=== PATIENT | female | born 1965 | race Caucasian/White ===

== ENCOUNTER → 2018-07-03 12:15 | Outpatient (CLI) | payer OTHER, BC, SELFPAY ==
[2018-07-03 12:37] LABS: Bilirubin Urine UA NEGATIVE (NEGATIVE); Color Urine UA YELLOW; Glucose Urine UA NEGATIVE (Normal); Ketones Urine UA NEGATIVE (NEGATIVE); Leukocyte Esterase Urine UA NEGATIVE (NEGATIVE); Nitrite Urine UA Negative (Negative); Occult Blood Urine UA NEGATIVE (Negative); Protein Urine UA NEGATIVE (Negative); Specific Gravity Urine UA >=1.030 (1.000-1.035); Urobilinogen Urine UA 0.2 E.U./dL (0.2)
[2018-07-03 12:40] LABS: Appearance Urine UA CLEAR
== END ==
PROVIDERS: PCP Nurse Practitioner; Visit Provider Nurse Practitioner Family
DX: R30.0 Dysuria (principal)
CPT/HCPCS: 81003

== ENCOUNTER → 2018-12-26 08:09 | Outpatient (CLI) | payer OTHER, BC, SELFPAY ==
--- NOTE | 2018-12-26 08:13 | DI.MG.S_ITS ---
BILATERAL DIGITAL SCREENING MAMMOGRAM 3D/2D WITH CAD: 12/26/2018 CLINICAL: Routine screening. Family history of breast cancer. Comparison is made to exams dated: 05/19/2015 mammogram - [facility], 11/12/2011 mammogram, and 11/12/2011 mammogram - [facility]. The tissue of both breasts is heterogeneously dense. This may lower the sensitivity of mammography. Current study was also evaluated with a Computer Aided Detection (CAD) system. No significant masses, calcifications, or other findings are seen in either breast. There has been no significant interval change. IMPRESSION: NEGATIVE There is no mammographic evidence of malignancy. A 1 year screening mammogram is recommended. This exam was interpreted at Station ID: [id number]. NOTE: For mammograms, a report in lay terms will be sent to the patient. Approximately 15% of breast malignancies will not be visualized mammographically. In the management of a palpable breast mass, a negative mammogram must not discourage biopsy of a clinically suspicious lesion. Electronically Signed By: Mian ruiz/aylin:12/28/2018 13:03:41 letter sent: Normal Exam ACR BI-RADS Category 1: Negative [id number]
[2018-12-26 10:25] LABS: Free T4, Direct Thyroxine 1.08 ng/dL (0.78-2.19)
[2018-12-26 10:39] LABS: Thyroid Stimulating Hormone 0.85 uIU/mL (0.47-4.68)
== END ==
PROVIDERS: PCP Student in an Organized Health Care Education/Training Program; Visit Provider Student in an Organized Health Care Education/Training Program
DX: Z12.31 Encounter for screening mammogram for malignant neoplasm of breast (principal); Z80.3 Family history of malignant neoplasm of breast; E04.9 Nontoxic goiter, unspecified
CPT/HCPCS: 36415; 77063; 77067; 84439; 84443

== ENCOUNTER 2019-04-30 08:47 | Day surgery (SDC) | payer OTHER, BC, SELFPAY ==
--- NOTE | 2019-04-30 | PATH_ITS ---
[facility] Accession Number: [id number] . 01 Material submitted: . PART A: colon - BIOPSY IN THE CECUM PART B: colon - POLYP AT 30 CM X2 PART C: colon - POLYP AT 25 CM PART D: colon - POLYPS AT 10 CM X2 . 02 Diagnosis: A. Cecum, Biopsy: Tubular adenoma in one of three fragments. . B. Colon, Polyp at 30 cm, Biopsies: Tubular adenomas. . C. Colon, Polyp at 25 cm, Biopsy: Tubulovillous adenoma. No evidence of malignancy or high-grade dysplasia. The excision appears complete. . D. Colon, Polyps at 10 cm x2, Biopsies: Hyperplastic polyps. [facility]/05/03/2019 . 02 Electronically signed: . Diana Cummings MD, Pathologist NPI- [id number] . 01 Gross description: . Part A: BIOPSY IN THE CECUM: Received in formalin are multiple fragment(s) of xie, soft tissue measuring 0.1 x 0.1 x 0.1 cm to 0.3 x 0.2 x 0.2 cm which is entirely submitted and submitted entirely in 1 cassette(s) Part B: POLYP AT 30 CM X2: Received in formalin are multiple fragment(s) of xie, soft tissue measuring 0.1 x 0.1 x 0.1 cm to 0.5 x 0.5 x 0.5 cm which is entirely submitted and submitted entirely in 1 cassette(s) Part C: POLYP AT 25 CM: Received in formalin is 1 fragment of xie soft tissue measuring 1.5 x 1.4 x 2.5 cm. Specimen is sectioned and submitted in its entirety in 4 cassettes. Part D: POLYPS AT 10 CM X2: Received in formalin are 2 fragment(s) of xie, soft tissue measuring 0.1 x 0.1 x 0.1 cm to 0.3 x 0.2 x 0.2 cm which is entirely submitted and submitted entirely in 1 cassette(s) /DMC /DMC . 02 Pathologist provided ICD-10: D12.0, D12.6 . 02 CPT . 015489, 686638, 817030, [id number] Performed at: 01 [facility] [address] [place] [address], [place], [place] [id number] MD Cale Guardado MD Phone: [phone] Performed at: 02 [facility] [address] [place], [place] [id number] MD Diana Cummings MD Phone: [phone]
[2019-04-30 09:00] VITALS: BP 138/87; PULSE 95; RESP 15; TEMP 36.4; O2SAT 96
[2019-04-30 09:03] VITALS: BMI 31.8
[2019-04-30] MEDS: SODIUM CHLORIDE 0.9% 1,000 ML 200 ML IV (09:12)
--- NOTE | 2019-04-30 10:54 | P.HP_ITS ---
History of Present Illness Date Patient Seen: 04/30/19 Time Patient Seen: 10:45 Chief complaint: 11798 Narrative: Patient is a woman here for screening colonoscopy. This is her 1st exam. She is 53 years of age. No family history of colon cancer. Patient History Medical History Foot pain (Chronic ~1994) Goiter (Chronic) Seborrheic dermatitis of scalp (Chronic) Thyroid nodule (Chronic) Tinnitus (Chronic) Chicken pox (Resolved ~1969) Surgical History Anesthesia (Resolved) Status post right foot surgery (Resolved ~2004) Status post tubal ligation (Resolved ~2008) Family History (Updated 02/14/15 @ 00:00 by Conversion Provider) Father Age: 82 Hypertension High cholesterol Mother Age: 81 Hypertension Grandfather No problems noted. Grandmother No problems noted. Grandfather No problems noted. Grandmother No problems noted. Sister No problems noted. Social History household members: spouse Smoking Status: Former smoker (2.5 pack year history. Quit August 2018.) Family & Social History Family History Father Age: 82 Hypertension High cholesterol Mother Age: 81 Hypertension Grandfather No problems noted. Grandmother No problems noted. Grandfather No problems noted. Grandmother No problems noted. Sister No problems noted. Social History: household members spouse Tobacco & Substance use: Smoking Status Former smoker Meds Home Medications Medication Instructions Recorded Confirmed Type levothyroxine 75 mcg tablet 75 mcg PO Q DAY #90 tab 04/27/19 04/30/19 Rx L.acidophilus-Bifido.longum 1 tab PO DAILY 04/30/19 04/30/19 History [Probiotic Pearls] Allergies Allergy/AdvReac Type Severity Reaction Status Date / Time No Known Drug Allergies Allergy Verified 04/30/19 09:00 Review of Systems Review of Systems All systems reviewed & are unremarkable except as noted in HPI and below Exam Vital Signs (past 8 hours): - 04/30/19 09:00 Temperature 97.6 F Pulse Rate 95 H Respiratory Rate 15 Blood Pressure 138/87 Pulse Oximetry 96 Oxygen Delivery Method Room Air Narrative Exam Narrative: Pleasant cooperative patient no apparent distress. Lungs are clear to auscultation. No rales or rhonchi. Heart regular rate and rhythm no murmur gallop. Abdomen is soft nontender without mass. No obvious hernias. P atient is alert and oriented x3. Assessment & Plan Assessment & Plan narrative: The patient for a screening colonoscopy. I have discussed the procedure with them. Risks of bleeding, perforation which would necessitate major operation, failure to find remove all lesions, the potential tattoo were all discussed. All questions were answered. They wished to proceed.
--- NOTE | 2019-04-30 10:54 | PM.PREOP ---
Pre-operative Note Interval Note History & Physical reviewed/Exam performed by Physician: Yes Changes to H&P: No ASA Class (for procedural sedation): I
--- NOTE | 2019-04-30 12:02 | PM.OP.ENDO ---
Operative Date/Time/Diagnoses Date of procedure: 04/30/19 Time of procedure: 12:02 Pre-op diagnosis: Screening examination. This is her 1st colonoscopy she is 53. Post-op diagnosis: same (Numerous rather large polyps) Procedure & Clinicians Study performed: Colonoscopy with cold biopsy, hot snare polypectomy and injection of ink Same procedure as scheduled: Yes Indications: Screening exam Surgeon: Wyatt Mendoza Procedure Notes SCOAP/Timeout: Performed Procedure in detail: The patient was placed in the left lateral decubitus position and underwent IV sedation directed by the surgeon consisting of fentanyl and Versed. Digital exam was remarkable for decreased sphincter tone. The scope was inserted and advanced through the rectum into the sigmoid, descending, transverse, and ascending colon. I noted a large polyp of about 35 cm going in and a smaller polyp at about 50. I decided to snare these on the way out. We continued on through the colon and I had to reposition her and applied a pressure. Ultimately we reach the cecum.. The cecum was reached identified by the ileocecal valve and the appendiceal opening. There was a small flat polyp in the cecum which I hot snared and appeared to be completely removed. The polyp that appeared to be at [address] in was actually at about [address] out. There were 2 lesions close enough to 1 another that I placed them in the same container after removing them with a hot snare. The very large polyp was at about 25 cm. It was on in incredibly long stalk. I snared this talk about mid length and attempted to remove the polyp with suction and pulling it down through the colon. I could not get it to come out the rectum however. It was just too large. A Milton net was placed on it I was able to remove it intact. I reinserted the scope and identified another polyp which I removed with cold biopsy forceps. It was not far from the large polyp which was further up in the colon. I then injected ink in 3 locations just distal to this biopsy. The scope was gradually brought out again. In the rectum there were 2 very small polyps which I removed with cold biopsy forceps. The scope ultimately was retroflexed in the rectum. The appearance was remarkable for small non ulcerated hemorrhoids. The scope was removed and the patient tolerated the procedure well, the prep was very good. Scope withdrawal time: 34 minutes Sedation minutes: 59 Findings: polyp (Multiple) Specimen(s): other (Polyps) Complications: none Recommendations: Other recommendation (Repeat colonoscopy in 6 months to ensure no regrowth of any of the polyps.)
[2019-04-30 12:05] VITALS: BP 123/82; PULSE 86; RESP 14; TEMP 36.8; O2SAT 95
[2019-04-30 12:13] VITALS: BP 127/82; PULSE 94; RESP 20; O2SAT 96
[2019-04-30 12:20] VITALS: BP 125/82; PULSE 94; RESP 15; O2SAT 93
[2019-04-30 12:48] VITALS: BP 127/75; PULSE 75; RESP 16; TEMP 37.1; O2SAT 94
--- NOTE | 2019-04-30 15:50 | SUR.PHASEII ---
1250 pt suddenly vomited 300mls of green fluid. Denied nausea after and requested to d/c. Repeatedly asked patient regarding her status and desire to D/C. Pt discharged without further incident.
== END 2019-04-30 13:00 | disposition home or self-care (01) ==
PROVIDERS: PCP Student in an Organized Health Care Education/Training Program; Visit Provider Specialist
PROC: 0DJD8ZZ Inspection of Lower Intestinal Tract, Via Natural or Artificial Opening Endoscopic (ICD-10-PCS; CPT 45378; principal; 2019-04-30 09:45)
DX: Z12.11 Encounter for screening for malignant neoplasm of colon (principal); D12.0 Benign neoplasm of cecum; D12.6 Benign neoplasm of colon, unspecified
CPT/HCPCS: 45385; 45380; 45381; 99152; 99153

== ENCOUNTER → 2020-03-17 09:20 | Outpatient (CLI) | payer OTHER, BC, SELFPAY ==
--- NOTE | 2020-03-17 09:22 | DI.RAD.S_ITS ---
PROCEDURE: XR WRIST LT MIN 3V INDICATIONS: Wrist pain and swelling TECHNIQUE: 4 views of the wrist were acquired. COMPARISON: None. FINDINGS: Bones: No fractures or dislocations. No suspicious bony lesions. First CMC and triscaphe joint degeneration Soft tissues: No suspicious soft tissue calcifications. IMPRESSION: Mild degenerative changes as above. If the patient's pain or other symptoms persist, consider further evaluation with MRI Dictated by: Chano Eckert M.D. on 03/17/2020 at 10:04 Approved by: Chano Eckert M.D. on 03/17/2020 at 10:06
== END ==
PROVIDERS: PCP Student in an Organized Health Care Education/Training Program; Referring Provider Student in an Organized Health Care Education/Training Program; Visit Provider Student in an Organized Health Care Education/Training Program
DX: M25.532 Pain in left wrist (principal); M25.432 Effusion, left wrist; M18.12 Unilateral primary osteoarthritis of first carpometacarpal joint, left hand
CPT/HCPCS: 73110

== ENCOUNTER → 2021-01-12 10:24 | Outpatient (CLI) | payer OTHER, BC, SELFPAY ==
[2021-01-12] MEDS: COVID-19 VACC #1, MRNA(MOD) 100 MCG/0.5 ML VIAL IM (10:28)
== END ==
PROVIDERS: PCP Student in an Organized Health Care Education/Training Program; Visit Provider Internal Medicine
DX: Z23 Encounter for immunization (principal)
CPT/HCPCS: 0011A; 91301

== ENCOUNTER → 2021-02-09 10:23 | Outpatient (CLI) | payer OTHER, BC, SELFPAY ==
[2021-02-09] MEDS: COVID-19 VACC #2, MRNA(MOD) 100 MCG/0.5 ML VIAL IM (10:41)
== END ==
PROVIDERS: PCP Student in an Organized Health Care Education/Training Program; Visit Provider Internal Medicine
DX: Z23 Encounter for immunization (principal)
CPT/HCPCS: 0012A; 91301

== ENCOUNTER → 2021-04-24 09:11 | Outpatient (CLI) | payer OTHER, BC, SELFPAY ==
--- NOTE | 2021-04-24 09:13 | DI.RAD.S_ITS ---
PROCEDURE: XR KNEE RT 3V INDICATIONS: Right knee pain TECHNIQUE: 3 views of the knee were acquired. COMPARISON: None. FINDINGS: Bones: No fractures or dislocations. No suspicious bony lesions. Mild tricompartmental periarticular osteophyte formation. Soft tissues: Small knee joint effusion. No suspicious soft tissue calcifications. IMPRESSION: 1. Osteoarthritis. 2. Knee joint effusion. 3. No acute fracture. No osseous lesion. If symptoms and/or clinical suspicion for pathology persist, further assessment with repeat, or advanced imaging (e.g., CT, MRI, or bone scan) may be helpful for further assessment. Dictated by: Peggy Sanchez M.D. on 04/24/2021 at 10:48 Approved by: Peggy Sanchez M.D. on 04/24/2021 at 10:49
== END ==
PROVIDERS: PCP Student in an Organized Health Care Education/Training Program; Referring Provider Student in an Organized Health Care Education/Training Program; Visit Provider Student in an Organized Health Care Education/Training Program
DX: M25.561 Pain in right knee (principal); M17.11 Unilateral primary osteoarthritis, right knee; M25.461 Effusion, right knee
CPT/HCPCS: 73562

== ENCOUNTER → 2022-07-15 15:05 | Outpatient (CLI) | payer OTHER, SELFPAY ==
[2022-07-15 15:22] LABS: Add Manual Diff / Slide Review NO; Basophils Absolute Auto 0 /uL (0-100); Basophils Percent Auto 0.5 % (0-2); Eosinophils Absolute Auto 0 /uL (0-450); Eosinophils Percent Auto 0.6 % (2-4); Hematocrit 40.5 % (36-46); Hemoglobin 13.6 g/dL (12.0-16.0); Lymphocytes Absolute Auto 1700 /uL (1100-4500); Lymphocytes Percent Auto 29.8 % (25-40); Mean Corpuscular HGB Conc 33.5 % (30-36); Mean Corpuscular Hemoglobin 29.8 PG (26-34); Mean Corpuscular Volume 89.1 fL (80-100); Monocytes Absolute Auto 400 /uL (0-900); Monocytes Percent Auto 7.7 % (3-14); Neutrophils Absolute Auto 3500 /uL (1500-7000); Neutrophils Percent Auto 61.4 % (50-75); Platelet Count 295 X10^3/uL (150-400); Red Blood Cell Count 4.54 X10^6/uL (4.0-5.2); Red Cell Distribution Width 13.3 % (11.6-14.8); White Blood Cell Count 5.8 X10^3/uL (4.5-11.0)
[2022-07-15 18:29] LABS: Hep C Virus Ab w/Reflex Quant NEGATIVE s/c (NEGATIVE)
[2022-07-15 19:24] LABS: Alanine Aminotransferase 23 IU/L (<35); Albumin 4.3 g/dL (3.5-5.0); Albumin Globulin Ratio 1.3 (1.0-2.8); Alkaline Phosphatase 67 U/L (38-126); Aspartate Aminotransferase 26 IU/L (14-36); BUN Creatinine Ratio 18.3 (6-22); Bilirubin Total 0.4 mg/dL (0.2-1.3); Blood Urea Nitrogen 13 mg/dL (7-17); Calcium 9.5 mg/dL (8.4-10.2); Carbon Dioxide 32 mmol/L (22-32); Chloride 100 mmol/L (98-107); Cholesterol 187 mg/dL (140-199); Estimated Glomerular Filt Rate > 60 mL/min (>60); Globulin 3.4 g/dL (1.7-4.1); Glucose 93 mg/dL (70-100); HDL Cholesterol 52 mg/dL (40-60); HEMOLYSIS < 15 (0-50); LDL Cholesterol Calculated 89 mg/dL (<100); Sodium 138 mmol/L (137-145); Total Protein 7.7 g/dL (6.3-8.2); Triglycerides 228 mg/dL (35-150)
[2022-07-15 20:01] LABS: Free T3, Triiodothyronine Free 5.24 pg/mL (2.77-5.27); Free T4, Direct Thyroxine 1.31 ng/dL (0.78-2.19)
[2022-07-15 20:15] LABS: Thyroid Stimulating Hormone 0.908 uIU/mL (0.47-4.68)
[2022-07-15 20:23] LABS: Vitamin B12 332 pg/mL (239-931)
== END ==
PROVIDERS: PCP Student in an Organized Health Care Education/Training Program; Referring Provider Student in an Organized Health Care Education/Training Program; Visit Provider Student in an Organized Health Care Education/Training Program
DX: Z13.220 Encounter for screening for lipoid disorders (principal); R53.83 Other fatigue; E03.9 Hypothyroidism, unspecified; E04.9 Nontoxic goiter, unspecified; E66.9 Obesity, unspecified; R63.5 Abnormal weight gain; Z11.59 Encounter for screening for other viral diseases
CPT/HCPCS: 36415; 80053; 80061; 82607; 84439; 84443; 84481; 85025; 86803

== ENCOUNTER → 2022-08-07 09:59 | Outpatient (CLI) | payer OTHER, SELFPAY ==
[2022-08-08 18:07] LABS: Fecal Immunochemical Test Positive (Negative)
== END ==
PROVIDERS: PCP Student in an Organized Health Care Education/Training Program; Referring Provider Student in an Organized Health Care Education/Training Program; Visit Provider Student in an Organized Health Care Education/Training Program
DX: Z12.11 Encounter for screening for malignant neoplasm of colon (principal)
CPT/HCPCS: 82274

== ENCOUNTER → 2023-06-04 15:00 | Outpatient (CLI) | payer OTHER, SELFPAY ==
--- NOTE | 2023-06-04 15:02 | DI.RAD.S_ITS ---
PROCEDURE: XR FOOT RT MIN 3V INDICATIONS: right foot pain TECHNIQUE: 3 views of the foot were acquired. COMPARISON: None. FINDINGS: Bones: No fractures or dislocations. No suspicious bony lesions. Calcaneal spur. Soft tissues: No tibiotalar joint effusion. Achilles tendon appears normal. IMPRESSION: No visualized acute fracture or dislocation. However, if clinical concern and/or pain persist, short interval imaging followup in 7-10 days is recommended, as occult injury cannot be definitively excluded. Dictated by: Myrna Wright M.D. on 06/04/2023 at 17:54 Approved by: Myrna Wright M.D. on 06/04/2023 at 17:55
== END ==
PROVIDERS: PCP Pediatrics; Referring Provider Internal Medicine; Visit Provider Internal Medicine
DX: M79.671 Pain in right foot (principal)
CPT/HCPCS: 73630

== ENCOUNTER → 2023-06-09 14:39 | Outpatient (CLI) | payer OTHER, SELFPAY ==
[2023-06-09 16:48] LABS: Add Manual Diff / Slide Review NO; Basophils Absolute Auto 0 /uL (0-100); Basophils Percent Auto 0.6 % (0-2); Eosinophils Absolute Auto 100 /uL (0-450); Eosinophils Percent Auto 1.3 % (2-4); Hematocrit 34.6 % (36-46); Hemoglobin 11.7 g/dL (12.0-16.0); Lymphocytes Absolute Auto 1400 /uL (1100-4500); Lymphocytes Percent Auto 31.1 % (25-40); Mean Corpuscular HGB Conc 33.7 % (30-36); Mean Corpuscular Hemoglobin 28.8 PG (26-34); Mean Corpuscular Volume 85.4 fL (80-100); Monocytes Absolute Auto 400 /uL (0-900); Monocytes Percent Auto 9.5 % (3-14); Neutrophils Absolute Auto 2500 /uL (1500-7000); Neutrophils Percent Auto 57.5 % (50-75); Platelet Count 349 X10^3/uL (150-400); Red Blood Cell Count 4.05 X10^6/uL (4.0-5.2); Red Cell Distribution Width 14.2 % (11.6-14.8); White Blood Cell Count 4.4 X10^3/uL (4.5-11.0)
[2023-06-09 17:08] LABS: D Dimer 6323 ng/ml (<500)
[2023-06-09 17:12] LABS: Alanine Aminotransferase 27 IU/L (<35); Albumin 3.7 g/dL (3.5-5.0); Albumin Globulin Ratio 1.3 (1.0-2.8); Alkaline Phosphatase 69 U/L (38-126); Aspartate Aminotransferase 23 IU/L (14-36); BUN Creatinine Ratio 32.8 (6-22); Bilirubin Total 0.2 mg/dL (0.2-1.3); Blood Urea Nitrogen 19 mg/dL (7-17); Calcium 9.3 mg/dL (8.4-10.2); Carbon Dioxide 28 mmol/L (22-32); Chloride 103 mmol/L (98-107); Estimated Glomerular Filt Rate > 60 mL/min (>60); Globulin 2.9 g/dL (1.7-4.1); Glucose 89 mg/dL (70-100); HEMOLYSIS < 15 (0-50); Potassium 4.2 mmol/L (3.4-5.1); Sodium 137 mmol/L (137-145); Total Protein 6.6 g/dL (6.3-8.2)
[2023-06-09 17:19] LABS: NT-proBNP (BNP-Adult 18+) 194 pg/mL (<125)
[2023-06-09 17:26] LABS: Free T3, Triiodothyronine Free 4.14 pg/mL (2.77-5.27); Free T4, Direct Thyroxine 1.35 ng/dL (0.78-2.19)
[2023-06-09 17:33] LABS: Erythrocyte Sedimentation Rate 43 MM/HR (0-20)
[2023-06-09 20:06] LABS: Appearance Urine UA CLEAR; Bilirubin Urine UA NEGATIVE (NEGATIVE); Color Urine UA YELLOW; Glucose Urine UA NEGATIVE (Negative); Ketones Urine UA NEGATIVE (NEGATIVE); Leukocyte Esterase Urine UA NEGATIVE (NEGATIVE); Nitrite Urine UA NEGATIVE (Negative); Occult Blood Urine UA NEGATIVE (Negative); Protein Urine UA NEGATIVE (Negative); Urobilinogen Urine UA 0.2 E.U./dL (0.2)
[2023-06-09 20:29] LABS: Amorphous Sediment Urine 1+; Bacteria Urine None Seen; Culture Indicated Urine Specimen Cultured; RBC Urine None Seen (0-5/HPF); Squamous Epithelial Cell Urine 10-30 /HPF (0-5/HPF); WBC Urine 0-1/HPF (0-5/HPF)
[2023-06-11 16:56] LABS: Anti Thyroglobulin Antibody <1.0 IU/mL (0.0-0.9); Thyroid Peroxidase Antibodies 15 IU/mL (0-34)
== END ==
PROVIDERS: PCP Pediatrics; Referring Provider Pediatrics; Visit Provider Pediatrics
DX: E03.9 Hypothyroidism, unspecified (principal); E66.9 Obesity, unspecified; M79.604 Pain in right leg; M79.605 Pain in left leg; R60.9 Edema, unspecified
CPT/HCPCS: 36415; 80053; 81001; 83880; 84439; 84481; 85025; 85379; 85651; 86376; 86800; 87086

== ENCOUNTER → 2023-06-17 12:13 | Outpatient (CLI) | payer OTHER, SELFPAY ==
--- NOTE | 2023-06-17 | DI.US.S_ITS ---
PROCEDURE: US PERIPH VENOUS LOW EXTREM BI INDICATIONS: LEG EDEMA TECHNIQUE: Real-time imaging, as well as color and pulse Doppler interrogation, were performed of the deep veins of both legs from the inguinal ligament to the popliteal fossa, with documentation of the visualized calf veins. COMPARISON: None. FINDINGS: Right: The common femoral, femoral, popliteal, and the visualized calf veins are normally compressible, and free of intraluminal thrombus. Color and pulse Doppler demonstrate normal phasic intravascular flow. There is normal augmentation response to distal compression maneuver. Right groin lymph nodes are seen that measure up to 3.1 cm. There is a right Mata's cyst seen that measures 7.2 x 2.3 x 4.9 cm. Left: The common femoral, femoral, popliteal, and the visualized calf veins are normally compressible, and free of intraluminal thrombus. Color and pulse Doppler demonstrate normal phasic intravascular flow. There is normal augmentation response to distal compression maneuver. A left Mata's cyst is seen that measures 4.7 x 1.7 x 5.8 cm. IMPRESSION: No findings of deep venous thrombosis in either lower extremity. Dictated by: Neri Mirza M.D. on 06/17/2023 at 12:24 Approved by: Neri Mirza M.D. on 06/17/2023 at 12:26
== END ==
PROVIDERS: PCP Pediatrics; Referring Provider Pediatrics; Visit Provider Pediatrics
DX: M79.89 Other specified soft tissue disorders (principal); M79.604 Pain in right leg; M79.605 Pain in left leg; R60.9 Edema, unspecified; M71.21 Synovial cyst of popliteal space [Baker], right knee; M71.22 Synovial cyst of popliteal space [Baker], left knee
CPT/HCPCS: 93970

== ENCOUNTER → 2024-06-08 14:25 | Outpatient (CLI) | payer OTHER, SELFPAY ==
[2024-06-08 15:11] LABS: Hematocrit 40.6 % (36-46); Hemoglobin 13.7 g/dL (12.0-16.0); Mean Corpuscular HGB Conc 33.8 % (30-36); Mean Corpuscular Hemoglobin 31.2 PG (26-34); Mean Corpuscular Volume 92.3 fL (80-100); Platelet Count 230 X10^3/uL (150-400); Red Cell Distribution Width 13.2 % (11.6-14.8); White Blood Cell Count 5.4 X10^3/uL (4.5-11.0)
[2024-06-08 15:24] LABS: Alanine Aminotransferase 19 IU/L (<35); Albumin 4.4 g/dL (3.5-5.0); Albumin Globulin Ratio 1.8 (1.0-2.8); Alkaline Phosphatase 60 U/L (38-126); Aspartate Aminotransferase 24 IU/L (14-36); BUN Creatinine Ratio 23.5 (6-22); Bilirubin Total 0.5 mg/dL (0.2-1.3); Blood Urea Nitrogen 16 mg/dL (7-17); C-Reactive Protein Quant < 0.5 mg/dL (<1.0); Calcium 9.7 mg/dL (8.4-10.2); Carbon Dioxide 28 mmol/L (22-32); Chloride 103 mmol/L (98-107); Cholesterol 188 mg/dL (140-199); Estimated Glomerular Filt Rate > 60 mL/min (>60); Globulin 2.5 g/dL (1.7-4.1); Glucose 96 mg/dL (80-110); HDL Cholesterol 68 mg/dL (40-60); HEMOLYSIS < 15 (0-50); LDL Cholesterol Calculated 64 mg/dL (<100); Potassium 4.1 mmol/L (3.4-5.1); Sodium 138 mmol/L (137-145); Total Protein 6.9 g/dL (6.3-8.2); Triglycerides 281 mg/dL (35-150)
[2024-06-08 15:52] LABS: TSH w/ Reflex to FT4 0.58 uIU/mL (0.47-4.68)
[2024-06-08 15:56] LABS: Erythrocyte Sedimentation Rate 10 MM/HR (0-20)
== END ==
LOC: LAB 14:26
PROVIDERS: PCP Internal Medicine; Referring Provider Internal Medicine; Visit Provider Internal Medicine
DX: E03.9 Hypothyroidism, unspecified (principal); I87.2 Venous insufficiency (chronic) (peripheral); M17.11 Unilateral primary osteoarthritis, right knee; M35.3 Polymyalgia rheumatica
CPT/HCPCS: 36415; 80053; 80061; 84443; 85027; 85651; 86140

== ENCOUNTER → 2025-01-27 13:24 | Outpatient (CLI) | payer OTHER, SELFPAY ==
--- NOTE | 2025-01-27 13:26 | DI.US.S_ITS ---
PROCEDURE: US THYROID INDICATIONS: THYROID NODULE TECHNIQUE: Real-time scanning was performed of the thyroid gland, with image documentation. COMPARISON: [facility], US, THYROID, 09/08/2017, 14:50. FINDINGS: Thyroid: Right lobe measures 9.2 x 4.2 x 2.9 cm. Left lobe measures 9.7 x 4.4 x 3.7 cm. Isthmus is 1.1 cm thick. Echotexture is heterogeneous. Nodule number: 1 Location: Right superior Size: 1.6 cm, previously 1.4 cm. Composition: Solid Echogenicity: Isoechoic Shape: wider than tall. Margins: Smooth Echogenic foci: None Total points: 3 ACR TI-RADS category: Mildly suspicious Nodule number: 2 Location: Right inferior Size: 2.7 cm, previously 2.1 cm. Composition: Solid Echogenicity: Isoechoic Shape: wider than tall. Margins: Ill-defined Echogenic foci: None Total points: 3 ACR TI-RADS category: Mildly suspicious Nodule number: 3 Location: Left inferior Size: 1.7 x 1.2 x 1.9 cm. Composition: Predominantly solid Echogenicity: Isoechoic Shape: Taller than wide Margins: Ill-defined Echogenic foci: None Total points: 6 ACR TI-RADS category: Moderately suspicious Nodule number: 4 Location: Isthmus Size: 1.5 cm. Composition: Predominantly solid Echogenicity: Isoechoic Shape: wider than tall. Margins: Ill-defined Echogenic foci: None Total points: 3 ACR TI-RADS category: Mildly suspicious IMPRESSION: 1. Thyroid nodules as described above. 2. Thyroid nodule 2 has increased in size and qualifies for fine-needle aspiration. 3. Thyroid nodule 3 is unclear if this is seen on prior exam. This nodule qualifies for fine-needle aspiration. 4. New isthmus nodule measuring 1.5 cm, 1 year follow-up is recommended. ACR TI-RADS definitions and recommendations: TI-RADS 1 (benign): 0 points. FNA not needed. TI-RADS 2 (not suspicious): 2 points. FNA not needed. TI-RADS 3: 3 points. * FNA if 2.5 cm or larger, follow up if 1.5 cm or larger (at 1, 3, and 5 years). TI-RADS 4: 4-6 points. * FNA if 1.5 cm or larger, follow up if 1 cm or larger (at 1, 2, 3, and 5 years). TI-RADS 5: 7 points or more. * FNA if 1 cm or larger, follow up if 0.5 cm or larger (every year for 5 years). Dictated by: Yuri Sanabria M.D. on 01/27/2025 at 19:39 Approved by: Yuri Sanabria M.D. on 01/27/2025 at 19:47
== END ==
PROVIDERS: PCP Family Medicine; Referring Provider Family Medicine; Visit Provider Family Medicine
DX: E04.2 Nontoxic multinodular goiter (principal)
CPT/HCPCS: 76536

== ENCOUNTER → 2025-02-21 13:07 | Outpatient (CLI) | payer OTHER, SELFPAY ==
--- NOTE | 2025-02-21 | PATH_ITS ---
Note [facility] Accession Number: [id number] TESTS RESULT FLAG UNITS REF RANGE LAB Clinician Provided Cytology Information No. of containers..01 Other (Miscellaneous) No. of containers..02 Previously Prepared Cytology Slide Source: LEFT INFERIOR THYROID NODULE #1 DIAGNOSIS: LEFT INFERIOR THYROID NODULE #1 ATYPIA OF UNDETERMINED SIGNIFICANCE. BETHESDA CATEGORY III. ATYPIA OF UNDETERMINED SIGNIFIANCE - NUCLEAR ATYPIA. MOLECULAR STUDIES REQUESTED; RESULTS WILL BE REPORTED SEPARATELY. Pathologist ICD10: R89.6 Signed out by: Pamela Barrett MD, Pathologist NPI- [id number] Performed by: Marcela Friedman, Hat Measurer ([facility]) Gross description: 30 CC, COLORLESS, CLEAR RECIEVED: IN CYTOLYT WITH 6 ALCOHOL FIXED AND 6 QUICK STAINED SLIDES ALSO 1 RNA VIAL WILL ON 06-07-2029.VO /VDU 02/22/2025 0721 Local FLAG LEGEND: L-Low Normal,H-High Normal,LL-Alert Low,HH-Alert High <-Panic Low,>-Panic High,A-Abnormal,AA-Critical Abnormal Performed at: 01 =Z [employer] [facility], [place] [address] Cale Guardado MD, Performed at: [address], [place], [place] [id number] MD Cale Guardado MD Phone: [phone]
--- NOTE | 2025-02-21 | PATH_ITS ---
Note [facility] Accession Number: [id number] TESTS RESULT FLAG UNITS REF RANGE LAB Clinician Provided Cytology Information No. of containers..01 Other (Miscellaneous) No. of containers..02 Previously Prepared Cytology Slide Source: RIGHT INFERIOR THYROID NODULE #2 DIAGNOSIS: RIGHT INFERIOR THYROID NODULE #2 BENIGN. SPECIMEN IS ADEQUATE BUT LIMITED BY LOW CELLULARITY. BETHESDA CATEGORY II. SPECIMEN CONSISTS OF FEW BENIGN FOLLICULAR CELLS, COLLOID, AND BLOOD. THIS PATTERN IS MOST CONSISTENT WITH FOLLICULAR NODULAR DISEASE. Pathologist ICD10: E04.1 Signed out by: Pamela Barrett MD, Pathologist NPI- [id number] Performed by: Marcela Friedman, Medical Reception Specialist ([facility]) Gross description: 30 CC, COLORLESS, CLEAR RECIEVED: IN CYTOLYT WITH 6 ALCOHOL FIXED AND 6 QUICK STAINED SLIDES ALSO 1 RNA VIAL WILL ON 06-07-2029.VO /VDU 02/22/2025 0722 Local FLAG LEGEND: L-Low Normal,H-High Normal,LL-Alert Low,HH-Alert High <-Panic Low,>-Panic High,A-Abnormal,AA-Critical Abnormal Performed at: 01 =Z [facility], [place] [address] Cale Guardado MD, Performed at: [address] [facility], [place], [place] [id number] MD Cale Guardado MD Phone: [phone]
--- NOTE | 2025-02-21 13:10 | DI.US.S_ITS ---
PROCEDURE: US FINE NEEDLE ASPIRATION INDICATIONS: THYROID NODULES TECHNIQUE: The indications, alternatives, benefits, risks, and complications of the procedure were explained to the patient. Written informed consent was obtained and placed in the chart. The area of interest was examined sonographically and a site was chosen for ultrasound guided percutaneous sampling. The skin was prepared and draped in the usual fashion, and anesthetized with 1% lidocaine infiltrated from the skin down to the lesion. Multiple passes were then performed, with contents emptied into an appropriate pathology specimen container. A bandage was applied to the area of access at completion of the study. COMPARISON: None. FINDINGS: 2 nodules were sampled: Location(s) of lesion(s) sampled: Right thyroid lobe inferiorly Grabill: 25 gauge hypodermic needles. Number of passes: 6 Medications: 1% lidocaine for local anaesthesia. Complications: None. Location(s) of lesion(s) sampled: Left thyroid lobe inferiorly Grabill: 25 gauge hypodermic needles. Number of passes: 6 Medications: 1% lidocaine for local anaesthesia. Complications: None. IMPRESSION: Successful ultrasound-guided bilateral fine needle aspiration, with cytology results pending. Dictated by: Damien Zapien M.D. on 02/22/2025 at 10:55 Approved by: Damien Zapien M.D. on 02/22/2025 at 10:58
== END ==
PROVIDERS: PCP Family Medicine; Referring Provider Family Medicine; Visit Provider Family Medicine
DX: E04.1 Nontoxic single thyroid nodule (principal)
CPT/HCPCS: 10005

== ENCOUNTER 2025-08-28 13:09 | Emergency (ER) | payer OTHER, SELFPAY ==
[2025-08-28 13:12] VITALS: BP 189/88; PULSE 96; RESP 18; TEMP 36.3; O2SAT 97; BMI 38.7
--- NOTE | 2025-08-28 13:15 | EKG_ITS ---
[facility] [address] [address] Test Date: 2025-08-28 Pat Name: Ruma Reynoso Department: [facility] Room: Gender: Female Test Cell Technician: NIVIA : 1965 Requested By: Order Number: [id number] Reading MD: Te Maravilla MD Measurements Intervals [place] Rate: 96 P: 52 MO: 142 QRS: -9 QRSD: 96 T: 32 QT: 350 QTc: 442 Interpretive Statements Normal sinus rhythm with sinus arrhythmia Minimal voltage criteria for LVH, may be normal variant ( Bao product ) Electronically Signed On 08-29-2025 8:03:52 PST by Te Maravilla MD
--- NOTE | 2025-08-28 13:15 | DI.RAD.S_ITS ---
PROCEDURE: XR CHEST 1V INDICATIONS: Shortness of breath TECHNIQUE: One view of the chest was acquired. COMPARISON: None. FINDINGS: Surgical changes and devices: None. Lungs and pleura: Plates of bandlike atelectasis most prominent right lower lobe. No concerning consolidation. No pleural effusion. No pneumothorax. Mediastinum: Mediastinal contours appear normal. Heart size is normal. Bones and chest wall: No suspicious bony lesions. Overlying soft tissues appear unremarkable. IMPRESSION: A few areas of platelike atelectasis without concerning consolidation. Dictated by: Rao Delgado M.D. on 08/28/2025 at 14:07 Approved by: Rao Delgado M.D. on 08/28/2025 at 14:10
[2025-08-28 13:39] LABS: Add Manual Diff / Slide Review NO; Hematocrit 41.9 % (36-46); Hemoglobin 14.2 g/dL (12.0-16.0); Lymphocytes Absolute Auto 1400 /uL (1100-4500); Mean Corpuscular HGB Conc 33.9 % (30-36); Mean Corpuscular Hemoglobin 31.1 PG (26-34); Mean Corpuscular Volume 91.7 fL (80-100); Platelet Count 279 X10^3/uL (150-400)
[2025-08-28 13:52] LABS: Alanine Aminotransferase 42 IU/L (<35); Albumin 4.8 g/dL (3.5-5.0); Albumin Globulin Ratio 1.6 (1.0-2.8); Alkaline Phosphatase 63 U/L (38-126); Blood Urea Nitrogen 10 mg/dL (7-17); Calcium 9.4 mg/dL (8.4-10.2); Carbon Dioxide 29 mmol/L (22-32); Chloride 104 mmol/L (98-107); Estimated Glomerular Filt Rate > 60 mL/min (>60); Globulin 3.0 g/dL (1.7-4.1); Glucose 105 mg/dL (70-99); HEMOLYSIS < 15 (0-50); Lactate (Lactic Acid) 1.0 mmol/L (0.7-2.1); Potassium 4.0 mmol/L (3.4-5.1); Sodium 141 mmol/L (137-145); Total Protein 7.8 g/dL (6.3-8.2)
[2025-08-28 13:59] LABS: INR 1.1 (0.9-1.3); Prothrombin Time 12.2 SECONDS (9.4-12.5)
[2025-08-28 14:05] LABS: NT-proBNP (BNP-Adult 18+) 73 pg/mL (<125); Troponin I < 0.012 ng/mL (0.01-0.034)
--- NOTE | 2025-08-28 16:13 | DI.CT.S_ITS ---
PROCEDURE: CT ANGIO CHEST PE PROTOCOL INDICATIONS: short of breath post op with high dimer TECHNIQUE: After the administration of intravenous contrast, 2 mm thick sections acquired from the pulmonary apices to the posterior costophrenic angles. 3-dimensional maximum intensity projection (MIP) coronal and sagittal reformats were then acquired through the thorax. For radiation dose reduction, the following was used: automated exposure control, adjustment of mA and/or kV according to patient size. COMPARISON: None. FINDINGS: Image quality: Diagnostic. Pulmonary arteries: Pulmonary arteries are normal in size, and demonstrate no intraluminal filling defects to suggest central pulmonary embolism. Lower Neck: No enlarged lymph nodes. Thyroid: No thyroid nodules which require sonographic follow up, per consensus guidelines. Axillae: No enlarged lymph nodes. Chest Wall: Unremarkable. Bones: Unremarkable. Lungs and Pleura: No pneumothorax or pleural effusions. Right middle lobe and right lower lobe atelectasis with consolidation and volume loss with air bronchograms. A few areas of bandlike atelectasis within the lingula. Heart: Heart size is normal. No pericardial effusion. Thoracic Vessels: No aortic aneurysm. Mediastinum and [place]: No enlarged lymph nodes. Esophagus: No wall thickening. Moderate hiatal hernia. Upper Abdomen: Visualized upper abdomen solid organs and bowel loops appear normal. IMPRESSION: No pulmonary embolus. Right middle lobe and right lower lobe probable atelectasis with infection not excluded. Dictated by: Rao Delgado M.D. on 08/28/2025 at 15:52 Approved by: Rao Delgado M.D. on 08/28/2025 at 15:58
--- NOTE | 2025-08-28 17:36 | ED.SOB ---
HPI - SOB/Dyspnea General Chief Complaint: Shortness of Breath/Dyspnea Stated Complaint: SOB following surgery Time Seen by Provider: 08/28/25 13:51 Source: patient Mode of arrival: Ambulatory History of Present Illness HPI Narrative: Patient is a 60-year-old female history of hypothyroid presents today after goiter removal on August 11. Since then she has been getting up and walking around however over the last 3 days she has had increasing shortness of breath with exertion. She reports that a grandchild had a little bit of the sniffles. But she denies any fever chills or cough. But she does report that she has a hard time with walking. No significant chest pain. She sleeps reclined an elevated always she has not noticed it to be any worse. She has no lower extremity swelling. Related Data Home Medications ?Medication ?Instructions ?Recorded ?Confirmed L.acidophilus-bif.longum 15 mg (1 1 tab PO DAILY 04/30/19 06/29/24 billion cell)capsule,delayed release (Probiotic Pearls) Previous Rx's ?Medication ?Instructions ?Recorded levothyroxine 75 mcg tablet 75 mcg PO DAILY #90 tabs 06/08/24 albuterol sulfate 90 mcg/actuation 2 puff inhalation Q4-6H PRN 08/28/25 aerosol inhaler shortness of breath or wheezing #8.5 grams Allergies Allergy/AdvReac Type Severity Reaction Status Date / Time vaccine adjuvant system, AdvReac Severe weakness, Verified 08/28/25 13:12 AS01B liposomal (From edema Shingrix (PF)) varicella-zoster virus AdvReac Severe weakness, Verified 08/28/25 13:12 glycoprotein E, recombinant edema (From Shingrix (PF)) Patient History Medical History (Updated 08/28/25 @ 17:50 by Marybeth Orozco DO) Thyroid nodule History of colonic polyps Venous (peripheral) insufficiency Acquired hypothyroidism Seborrheic dermatitis of scalp Chicken pox (~1969) Tinnitus Goiter (01/13/14) Surgical History (Updated 07/10/24 @ 20:48 by Rody Maria) History of colonoscopy Anesthesia Status post right foot surgery (~2004) Status post tubal ligation (~2008) Family History (Updated 07/10/24 @ 20:49 by Rody Maria) Father Age: 88 Hypertension High cholesterol Mother Age: 87 Hypertension High cholesterol Grandfather No problems noted. Grandmother No problems noted. Grandfather No problems noted. Grandmother No problems noted. Sister No problems noted. Social History details: , son in [facility] [employer] household members: spouse Smoking Status: Former smoker Exam Initial Vital Signs Initial Vital Signs: Vital Signs Temperature 97.3 F L 08/28/25 13:12 Pulse Rate 96 H 08/28/25 13:12 Respiratory Rate 18 08/28/25 13:12 Blood Pressure 189/88 H 08/28/25 13:12 Pulse Oximetry 97 08/28/25 13:12 Oxygen Delivery Method Room Air 08/28/25 13:12 GENERAL: Alert pleasant heavenly 60-year-old and in no acute distress. HEENT: Head atraumatic,EOMI, pupils reactive, face symmetric, moist mucous membranes CARDIOVASCULAR: Regular rate and rhythm without murmurs, rubs or gallops. RESPIRATORY: Breath sounds equal bilaterally, no wheezes rales or rhonchi. ABDOMEN: Soft, nontender. Normoactive bowel sounds all 4 quadrants. No guarding or rebound. EXTREMITIES: Normal range of motion, no clubbing or edema. Neurovascularly intact NEUROLOGICAL: Alert and oriented x4.Normal gait and speech. Cranial nerves II through XII grossly intact. SKIN: Warm, dry, no laceration, no petechiae, no rashes or lesions. Course Orders Ordered: ED Orders 08/28/25 13:15 XR chest 1V Stat EKG-12 Lead Stat Measure peak expiratory flow STAT RT Consult Eval and Treat STAT 08/28/25 13:28 Complete Blood Count AUTO DIFF Stat Comprehensive Metabolic Panel Stat D Dimer Stat Lactate (Lactic Acid) Stat NT-proBNP (BNP-Adult 18+) Stat Prothrombin Time INR Stat Troponin I Stat 08/28/25 16:13 CT angio chest PE protocol Stat Discontinued Medications Albuterol (Albuterol Hfa Prepack) [facility] Stop: 08/28/25 17:44 Vital Signs Vital signs: Vital Signs - 8 hr 08/28/25 13:12 08/28/25 17:44 Temperature 97.3 F L Pulse Rate 96 H 89 Respiratory Rate 18 20 Blood Pressure 189/88 H 141/82 H Pulse Oximetry 97 96 Oxygen Delivery Method Room Air Room Air MDM - SOB/Dyspnea Lab Data 08/28/25 13:28 08/28/25 13:28 Labs: Lab Results 08/28/25 Range/Units 13:28 WBC 5.8 (4.5-11.0) X10^3/uL RBC 4.57 (4.0-5.2) X10^6/uL Hgb 14.2 (12.0-16.0) g/dL Hct 41.9 (36-46) % MCV 91.7 (80-100) fL MCH 31.1 (26-34) PG MCHC 33.9 (30-36) % RDW 12.9 (11.6-14.8) % Plt Count 279 (150-400) X10^3/uL Neut % (Auto) 67.8 (50-75) % Lymph % (Auto) 24.0 L (25-40) % [place] % (Auto) 6.9 (3-14) % Eos % (Auto) 0.9 L (2-4) % Baso % (Auto) 0.4 (0-2) % Neut # (Auto) 3900 (4086-0695) /uL Lymph # (Auto) 1400 (6832-8184) /uL [place] # (Auto) 400 (0-900) /uL Eos # (Auto) 100 (0-450) /uL Baso # (Auto) 0 (0-100) /uL PT 12.2 (9.4-12.5) SECONDS INR 1.1 (0.9-1.3) D-Dimer 990 H (<500) ng/ml Sodium 141 (137-145) mmol/L Potassium 4.0 (3.4-5.1) mmol/L Chloride 104 (98-107) mmol/L Carbon Dioxide 29 (22-32) mmol/L BUN 10 (7-17) mg/dL Creatinine 0.63 (0.52-1.04) mg/dL Estimated GFR > 60 (>60) mL/min BUN/Creatinine Ratio 15.9 (6-22) Glucose 105 H (70-99) mg/dL Lactate 1.0 (0.7-2.1) mmol/L Calcium 9.4 (8.4-10.2) mg/dL Total Bilirubin 0.3 (0.2-1.3) mg/dL AST 38 H (14-36) IU/L ALT 42 H (<35) IU/L Alkaline Phosphatase 63 (38-126) U/L Troponin I < 0.012 (0.01-0.034) ng/mL NT-Pro-B Natriuret Pep 73 (<125) pg/mL Total Protein 7.8 (6.3-8.2) g/dL Albumin 4.8 (3.5-5.0) g/dL Globulin 3.0 (1.7-4.1) g/dL Albumin/Globulin Ratio 1.6 (1.0-2.8) Imaging Data Chest x-ray: Radiologist's Impression: PROCEDURE: XR CHEST 1V INDICATIONS: Shortness of breath TECHNIQUE: One view of the chest was acquired. COMPARISON: None. FINDINGS: Surgical changes and devices: None. Lungs and pleura: Plates of bandlike atelectasis most prominent right lower lobe. No concerning consolidation. No pleural effusion. No pneumothorax. Mediastinum: Mediastinal contours appear normal. Heart size is normal. Bones and chest wall: No suspicious bony lesions. Overlying soft tissues appear unremarkable. IMPRESSION: A few areas of platelike atelectasis without concerning consolidation. Dictated by: Rao Delgado M.D. on 08/28/2025 at 14:07 CT scan - chest: Radiologist's Impression: PROCEDURE: CT ANGIO CHEST PE PROTOCOL INDICATIONS: short of breath post op with high dimer TECHNIQUE: After the administration of intravenous contrast, 2 mm thick sections acquired from the pulmonary apices to the posterior costophrenic angles. 3-dimensional maximum intensity projection (MIP) coronal and sagittal reformats were then acquired through the thorax. For radiation dose reduction, the following was used: automated exposure control, adjustment of mA and/or kV according to patient size. COMPARISON: None. FINDINGS: Image quality: Diagnostic. Pulmonary arteries: Pulmonary arteries are normal in size, and demonstrate no intraluminal filling defects to suggest central pulmonary embolism. Lower Neck: No enlarged lymph nodes. Thyroid: No thyroid nodules which require sonographic follow up, per consensus guidelines. Axillae: No enlarged lymph nodes. Chest Wall: Unremarkable. Bones: Unremarkable. Lungs and Pleura: No pneumothorax or pleural effusions. Right middle lobe and right lower lobe atelectasis with consolidation and volume loss with air bronchograms. A few areas of bandlike atelectasis within the lingula. Heart: Heart size is normal. No pericardial effusion. Thoracic Vessels: No aortic aneurysm. Mediastinum and [place]: No enlarged lymph nodes. Esophagus: No wall thickening. Moderate hiatal hernia. Upper Abdomen: Visualized upper abdomen solid organs and bowel loops appear normal. IMPRESSION: No pulmonary embolus. Right middle lobe and right lower lobe probable atelectasis with infection not excluded. Dictated by: Rao Delgado M.D. on 08/28/2025 at 15:52 ECG Data Attestation: I personally reviewed and interpreted this ECG as follows: Prior ECG tracings: not available for review Interpretation: Rhythm rate 96 NC interval 142 QRS [address] changes T-wave inversion noted in lead 3 only Q-waves also noted in lead 3 no S-wave MDM Narrative Medical decision making narrative: MDM CC: Shortness of breath with exertion Complicating co-morbidities: Thyroid surgery with recent goiter removal Data collected from: Patient Medical records reviewed: Previous records Differential considered: Acute coronary syndrome, pulmonary embolism, pneumonia, congestive heart failure Exam documented above, pertinent findings include: Alert pleasant 60 year female breath sounds clear no respiratory distress Lab Test results independently reviewed as above. Pertinent findings: D-dimer 990 CBC no leukocytosis no anemia CMP normal electrolytes no GISSELL glucose 105 Lactate 1.0 Bilirubin liver enzymes within normal limits Troponin negative, BNP 73 Independently reviewed EKG as above Sinus rhythm does show some Q-waves no priors to compare Imaging studies independently reviewed: Chest x-ray few areas of platelike atelectasis without concerning consolidation CT angio no pulmonary embolism right lower lobe some atelectasis can not rule out infection Consultations: none Treatments: Albuterol spacer inhaler teaching incentive spirometry Discussion:is 60-year-old female presenting today with increasing shortness of breath with exertion. She has no fever or chills. Blood work is overall reassuring. She did have an elevated D-dimer. However CT angio did rule out pulmonary embolism. Not having any chest pain no known history of coronary artery disease he has negative troponin. No evidence of fluid overload on exam BNP is 73 as well. This time she is given albuterol inhaler it spacer teaching. Recommended incentive spirometer as well but he seems to be getting up and walking around pretty easily. At this time she is not having fever chills or cough no leukocytosis or fever normal lactic acid. I do not see a need for any antibiotics at this time. Discharge Plan Departure Patient Disposition: Home Clinical Impression: Atelectasis Instructions: Atelectasis Activity Restrictions/Additional Instructions: *You have been diagnosed with atelectasis *What to do: No obvious infection no need for antibiotics. You do not have a blood clot in your lungs blood work is overall reassuring. Try using incentive spirometer taking deep breaths expanding your lungs. Honestly getting up and walking around we will help this a lot. *Continue to take medications as directed Albuterol 1-2 puffs as needed for shortness of breath with space every 4 hours *Follow up with your primary care provider in 2-3 days or call [phone] *Return to ER if you should have increasing shortness of breath chest pain weakness passing out or any new, worsening or concerning symptoms Prescriptions: New albuterol sulfate 90 mcg/actuation HFA aerosol inhaler 2 puff inhalation Q4-6H PRN (Reason: shortness of breath or wheezing) Qty: 8.5 0RF No Action levothyroxine 75 mcg tablet 75 mcg PO DAILY Qty: 90 3RF L.acidophilus-Bifido.longum [Probiotic Pearls] 15 mg (1 billion cell) Capsule,Delayed Release(Dr/Ec) 1 tab PO DAILY Referrals: Anais Rebolledo MD [Primary Care Provider, Family Practice] Stand Alone Forms: Patient Portal/API
[2025-08-28 17:44] VITALS: BP 141/82; PULSE 89; RESP 20; O2SAT 96
[2025-08-28] MEDS: ALBUTEROL HFA PREPACK 1 BOX MISC (18:09)
[2025-08-28 18:43] VITALS: PULSE 104; RESP 18; O2SAT 95
--- NOTE | 2025-08-28 18:44 | PC.NURSE ---
IV removed by another nurse.
== END 2025-08-28 18:45 | disposition home or self-care (01) ==
PROVIDERS: Emergency Provider Emergency Medicine; PCP Family Medicine
DX: J98.11 Atelectasis (principal)
CPT/HCPCS: 36415; 71045; 71275; 80053; 83605; 83880; 84484; 85025; 85379; 85610; 93005; 99283; 99284; Q9967